=== PATIENT | male | born 1945 | race African-American/Black ===

== ENCOUNTER → 2017-02-21 | Outpatient (CLI) | payer MEDICARE, OTHER ==
[~2017-02-21] VITALS: Ht 157.5 cm; Wt 65.8 kg
[~2017-02-21] MED LIST: ACYCLOVIR 400400 MG PO; ALENDRONATE SOD70 MG; ALENDRONATE SODIUM PO; ALLOPURINOL 30300 M1 PO; ANASPAZ0.125 MG SL; APAP500 PO; APAP650 PO; ARICEPT 5 MG TAB5 MG PO; ARTIFICIAL TEAR15 M1 OPHTHALMIC; BACTRIM DS TAB1 EACH PO; BELLADONNA-OPI1 EACH; BENTYL20 MG PO; CARBIDOPA-LEVO1 EAC2 PO; CARBIDOPA-LEVO1 EAC6 PO; CARISOPRODOL 3350 MG PO; CEFTAZIDIME IV; CIPRO500 MG PO; CIPROFLOXACIN500 M1 PO; CLONAZEPAM 0.50.5 M1 PO; CLONAZEPAM 1 MG1 M1 PO; CLONAZEPAM PO; COLACE100 MG PO; COMPAZINE10 MG PO; COQ1050 MG PO; COUMADIN 3 MG TA3 M1 PO; COUMADIN 5 MG TA5 M1 PO; COUMADIN6 MG PO; D3 + K2 DOTS 11 EACH PO; DEXAMETHASONE 44 M1 PO; DEXAMETHASONE4 MG PO; DIAZEPAM 10 MG10 M1 PO; DOLOPHINE HCL10 MG PO; DOLOPHINE HCL5 MG PO; DULCOLAX5 MG PO; DURAGESIC1 EAC2 TRANSDERM; ENOXAPARIN40 MG/0.1 SUBQ; ENOXAPARIN80 MG/0.1 INJECTION; ENOXAPARIN80 MG/0.8 SQ; EX-LAX15 M1 PO; FIBERCON625 M1 PO; FLEXERIL PO; FOSAMAX 70 MG T70 MG PO; FUROSEMIDE 20 M20 MG PO; HEMORRHOIDAL HC25 MG RC; HYDROCODONE-AP1 EAC6 PO; HYOSCYAMINE0.375 MG; KEFLEX500 MG PO; KLOR-CON 1010 MEQ PO; LASIX 20 MG TAB20 MG PO; LEVAQUIN 500 M500 MG PO; LEXAPRO 10 MG T10 M1 PO; LEXAPRO 10 MG T10 M2 PO; LIDOCAINE HCL 210 M1 TOP; MACROBID 100 M100 M1 PO; MAXIPIME 2 GM AD2 GM IV; MELATIN3 MG; MIRALAX255 GM PO; NEURONTIN 300300 M1 PO; NITROGLYCERIN0.4 MG SL; NORCO 5-325 TA1 EACH PO; ONDANSETRON HCL4 M2 PO; ONDANSETRON ODT8 MG PO; PAMIDRONATE; PERCOCET 5-3251 EACH PO; PHENAZOPYRIDIN200 M2; PREDNISONE 10 M10 MG PO; PRILOSEC40 MG PO; PROCHLORPERAZIN10 MG PO; PROCTOCREAM-HC30 G1 RC; PYRIDIUM200 MG PO; REFRESH CELLUVI1 APP OPHTHALMIC; REFRESH CLASSI1 EACH OPHTHALMIC; REQUIP3 MG PO; REVLIMID25 MG PO; ROBAXIN 750 MG750 M1 PO; SEROQUEL 25 MG25 M1 PO; SINEMET 25-1001 EAC1 PO; SINEMET CR 50/21 TAB PO; TAMSULOSIN HCL0.4 M1 PO; TRAZODONE HCL50 MG PO; TRIHEXYPHENIDYL2 M2 NG; TRIHEXYPHENIDYL2 M2 PO; TUMS PO; URIBEL CAPSULE1 EACH PO; VALIUM2 MG PO; VITAMIN B-2100 MG PO; VITAMIN D1000 UNI1 PO; VITAMIN D250000 UNIT PO; VITAMIN D31000 UNI2; VITAMIN D31000 UNI2 PO; WARFARIN PO; ZANAFLEX4 M1; ZANTAC 150MG T150 MG PO; ZOLPIDEM TART12.5 MG PO; ZONISAMIDE 100100 M1 PO; [UNRECOGNIZED DRUG - REMARK]
[2017-02-21 10:09] VITALS: BP 103/50
== END ==
LOC: M.INT 09:41
DX: M48.54XA Collapsed vertebra, not elsewhere classified, thoracic region, initial encounter for fracture (principal); C90.00 Multiple myeloma not having achieved remission; M47.894 Other spondylosis, thoracic region; N39.0 Urinary tract infection, site not specified; Z87.891 Personal history of nicotine dependence; Z86.718 Personal history of other venous thrombosis and embolism; Z89.022 Acquired absence of left finger(s)

== ENCOUNTER 2018-04-12 13:22 | Inpatient (IN) | payer MEDICARE, OTHER ==
[~2018-04-12] VITALS: Ht 160 cm; Wt 63.0 kg
[2018-04-12 13:33] VITALS: BP 140/70
[2018-04-12] MEDS ORDERED: COLACE100 MG PO (13:48)
[2018-04-12] MEDS ORDERED: OMEPRAZOLE40 MG PO (13:52)
[2018-04-12] MEDS ORDERED: VITAMIN D3400 UNIT PO (13:53)
[2018-04-12] MEDS ORDERED: COUMADIN 5 MG TA5 M1 PO (13:55)
[2018-04-12] MEDS ORDERED: METHADONE HCL 110 M1 PO (13:56)
[2018-04-12] MEDS ORDERED: LEVSIN0.125 MG PO (13:57)
[2018-04-12 14:09] LABS: ABSOLUTE EOSINOPHILS 0.1 thou/uL (0.0-0.7); ABSOLUTE LYMPHOCYTES 0.8 thou/uL (0.8-5.3); ABSOLUTE MONOCYTES 0.3 thou/uL (0.0-1.2); ABSOLUTE NEUTROPHILS 3.6 thou/uL (1.6-8.1); BASOPHILS 0.4 %; EOSINOPHILS 1.3 %; HEMATOCRIT 25.3 % (42.0-52.0); HEMOGLOBIN 8.3 gm/dL (14.0-18.0); LYMPHOCYTES 17.5 %; MCH 33.5 pg (26.0-34.0); MCHC 32.7 g/dL (28.0-37.0); MCV 102.3 fL (80.0-100.0); MPV 7.7 fl. (7.2-11.1); NUCLEATED RBCS 0 /100WBC; PLATELET COUNT* 329 thou/uL (150-400); POLYS 73.8 %; RBC 2.47 mil/uL (4.50-6.00); RDW-CV 15.1 % (10.5-14.5); WBC 4.8 thou/uL (4.0-11.0)
[2018-04-12 14:26] LABS: ALBUMIN 2.8 g/dL (3.4-5.0); CALCIUM 8.7 mg/dL (8.5-10.1); CREATININE 1.8 mg/dL (0.6-1.3); POTASSIUM 4.3 mmol/L (3.5-5.1); TOTAL BILIRUBIN 0.1 mg/dL (<0.1-1.0); TOTAL PROTEIN 9.2 g/dL (6.4-8.2)
[2018-04-12 14:30] LABS: URINE BILIRUBIN NEGATIVE (Negative); URINE BLOOD 2+ (Negative); URINE CLARITY CLEAR; URINE COLOR YELLOW; URINE GLUCOSE-RANDOM NEGATIVE (Negative); URINE KETONES TRACE (Negative); URINE PROTEIN 2+ (Negative); URINE SPECIFIC GRAVITY >= 1.030 (1.005-1.030); URINE UROBILINOGEN 0.2 E.U./dl (0.2-1.0)
[2018-04-12 14:51] LABS: URINE LEUKOCYTES-REFLEX 2+ (Negative); URINE NITRITE-REFLEX POSITIVE (Negative)
[2018-04-12 14:52] LABS: CASTS None Seen /LPF (None Seen); CRYSTALS None Seen /LPF (None Seen); SQUAMOUS 0-3 Few /LPF (0-3); URINE RBC 0-2 Rare /HPF (0-2); URINE WBC-REFLEX 6-15 Few /HPF (0-5)
[2018-04-12 15:38] LABS: INFLUENZA A ANTIGEN None Detected (None Detect); INFLUENZA B ANTIGEN None Detected (None Detect)
[2018-04-12 20:02] VITALS: BP 147/59
[2018-04-12 20:10] VITALS: BP 145/58
[2018-04-13 00:30] VITALS: BP 131/53
[2018-04-13 04:25] VITALS: BP 128/52
[2018-04-13 04:58] LABS: ABSOLUTE EOSINOPHILS 0.1 thou/uL (0.0-0.7); ABSOLUTE LYMPHOCYTES 0.8 thou/uL (0.8-5.3); ABSOLUTE MONOCYTES 0.3 thou/uL (0.0-1.2); ABSOLUTE NEUTROPHILS 2.5 thou/uL (1.6-8.1); BASOPHILS 0.4 %; HEMATOCRIT 21.3 % (42.0-52.0); HEMOGLOBIN 7.2 gm/dL (14.0-18.0); LYMPHOCYTES 22.8 %; MCH 34.5 pg (26.0-34.0); MCHC 33.9 g/dL (28.0-37.0); MCV 101.8 fL (80.0-100.0); MONOCYTES 6.8 %; MPV 8.2 fl. (7.2-11.1); NUCLEATED RBCS 0 /100WBC; PLATELET COUNT* 264 thou/uL (150-400); RBC 2.09 mil/uL (4.50-6.00); RDW-CV 15.7 % (10.5-14.5); WBC 3.7 thou/uL (4.0-11.0)
[2018-04-13 05:17] LABS: ALBUMIN 2.1 g/dL (3.4-5.0); CALCIUM 7.9 mg/dL (8.5-10.1); CREATININE 1.7 mg/dL (0.6-1.3); POTASSIUM 4.7 mmol/L (3.5-5.1); TOTAL BILIRUBIN 0.1 mg/dL (<0.1-1.0); TOTAL PROTEIN 7.5 g/dL (6.4-8.2)
[2018-04-13 08:00] VITALS: BP 132/52
[2018-04-13 12:04] VITALS: BP 87/54
[2018-04-13 16:35] VITALS: BP 133/48
[2018-04-13 20:00] VITALS: BP 154/67
[2018-04-14 00:15] VITALS: BP 135/60
[2018-04-14 04:00] VITALS: BP 131/50
[2018-04-14 05:15] LABS: ABSOLUTE EOSINOPHILS 0.1 thou/uL (0.0-0.7); ABSOLUTE LYMPHOCYTES 0.8 thou/uL (0.8-5.3); ABSOLUTE MONOCYTES 0.2 thou/uL (0.0-1.2); ABSOLUTE NEUTROPHILS 2.5 thou/uL (1.6-8.1); BASOPHILS 0.3 %; EOSINOPHILS 2.4 %; HEMATOCRIT 22.2 % (42.0-52.0); HEMOGLOBIN 7.4 gm/dL (14.0-18.0); LYMPHOCYTES 21.8 %; MCH 33.7 pg (26.0-34.0); MCHC 33.3 g/dL (28.0-37.0); MCV 101.3 fL (80.0-100.0); MONOCYTES 6.8 %; MPV 7.8 fl. (7.2-11.1); NUCLEATED RBCS 0 /100WBC; PLATELET COUNT* 287 thou/uL (150-400); POLYS 68.7 %; RBC 2.19 mil/uL (4.50-6.00); RDW-CV 15.1 % (10.5-14.5); WBC 3.6 thou/uL (4.0-11.0)
[2018-04-14 05:53] LABS: ALBUMIN 2.2 g/dL (3.4-5.0); CALCIUM 7.9 mg/dL (8.5-10.1); CREATININE 1.6 mg/dL (0.6-1.3); POTASSIUM 4.7 mmol/L (3.5-5.1); TOTAL BILIRUBIN 0.1 mg/dL (<0.1-1.0); TOTAL PROTEIN 7.7 g/dL (6.4-8.2)
[2018-04-14 08:00] VITALS: BP 145/63
[2018-04-14 11:47] VITALS: BP 140/61
[2018-04-14 16:00] VITALS: BP 141/70
[2018-04-14 19:55] VITALS: BP 163/71
[2018-04-15] VITALS: BP 105/48
[2018-04-15 04:26] VITALS: BP 139/51
[2018-04-15 07:21] LABS: ABSOLUTE EOSINOPHILS 0.1 thou/uL (0.0-0.7); ABSOLUTE LYMPHOCYTES 0.7 thou/uL (0.8-5.3); ABSOLUTE MONOCYTES 0.3 thou/uL (0.0-1.2); ABSOLUTE NEUTROPHILS 1.9 thou/uL (1.6-8.1); BASOPHILS 0.3 %; EOSINOPHILS 3.5 %; HEMATOCRIT 21.5 % (42.0-52.0); HEMOGLOBIN 7.1 gm/dL (14.0-18.0); LYMPHOCYTES 24.4 %; MCH 33.5 pg (26.0-34.0); MCV 101.6 fL (80.0-100.0); MONOCYTES 8.5 %; MPV 8.4 fl. (7.2-11.1); NUCLEATED RBCS 0 /100WBC; PLATELET COUNT* 289 thou/uL (150-400); POLYS 63.3 %; RBC 2.12 mil/uL (4.50-6.00); RDW-CV 15.5 % (10.5-14.5)
[2018-04-15 07:30] VITALS: BP 147/70
[2018-04-15 07:31] LABS: ALBUMIN 2.3 g/dL (3.4-5.0); ALKALINE PHOSPHATASE 54 U/L (46-116); ANION GAP 11 mmol/L (7-16); BUN 18 mg/dL (7-18); CALCIUM 7.8 mg/dL (8.5-10.1); CHLORIDE 110 mmol/L (98-107); CO2 23 mmol/L (21-32); CREATININE 1.5 mg/dL (0.6-1.3); GLUCOSE 97 mg/dL (70-99); POTASSIUM 4.2 mmol/L (3.5-5.1); SGOT 9 U/L (15-37); SGPT 8 U/L (30-65); SODIUM 144 mmol/L (136-145); TOTAL PROTEIN 7.3 g/dL (6.4-8.2)
[2018-04-15 07:33] LABS: TOTAL BILIRUBIN < 0.1 mg/dL (<0.1-1.0)
[2018-04-15] MEDS ORDERED: OXYBUTYNIN 5 MG5 M2 PO (09:43)
[2018-04-15] MEDS ORDERED: KEFLEX500 M1 PO (09:43)
[2018-04-15 10:08] VITALS: BP 147/70
--- NOTE | 2018-04-15 14:50 | EKG ---
[place] [address] ELECTROCARDIOGRAM REPORT Name: ISAURA LABOY Room: [address] DIS IN M.R.#: [id number] Admission: 04/12/18 Attend Phys: Lance Wilkes Discharge: 04/15/18 Date of : 43 Report #: [id number] THIS REPORT FOR: //name// [facility] ED Test Date: 2018-04-12 Test Time: 14:29:46 Pat Name: ISAURA LABOY Department: Room: [facility] Gender: M Locker Operator: Jill WHEELER : 1945 Requested By: Mark Murillo Order Number: [id number] MD: Da Ochoa Measurements Intervals [place] Rate: 69 P: 17 TX: 136 QRS: -1 QRSD: 80 T: 25 QT: 383 QTc: 411 Interpretive Statements Sinus rhythm Artifact in lead(s) I,III,aVR,aVL,aVF,V1 Compared to ECG 01/02/2017 19:55:04 No significant changes Electronically Signed On 04-15-2018 14:49:52 CDT by Da Ochoa [email or web address] <ELECTRONICALLY SIGNED> By: Da Ochoa MD, [facility] 04/15/18 1449 1429 1429 Da Ochoa MD, [facility] /EPI
== END 2018-04-15 13:17 | disposition home or self-care (01) | DRG 391 ==
LOC: M.ERS 13:22 → M.TBA-ER 15:16 → M.2W 15:16
PROVIDERS: Nurse Practitioner Psychiatric/Mental Health; Physician Assistant; ADMIT Internal Medicine
DX: A08.4 Viral intestinal infection, unspecified (principal); E43 Unspecified severe protein-calorie malnutrition; N39.0 Urinary tract infection, site not specified; C90.00 Multiple myeloma not having achieved remission; G20 Parkinson's disease; F41.9 Anxiety disorder, unspecified; F32.9 Major depressive disorder, single episode, unspecified; R19.7 Diarrhea, unspecified; M81.0 Age-related osteoporosis without current pathological fracture; N18.3 Chronic kidney disease, stage 3 (moderate); D64.9 Anemia, unspecified; R33.9 Retention of urine, unspecified; N20.0 Calculus of kidney; B96.20 Unspecified Escherichia coli [E. coli] as the cause of diseases classified elsewhere; Z86.711 Personal history of pulmonary embolism; Z89.422 Acquired absence of other left toe(s); Z86.718 Personal history of other venous thrombosis and embolism; Z87.891 Personal history of nicotine dependence; Z85.51 Personal history of malignant neoplasm of bladder; Z98.1 Arthrodesis status; Z92.21 Personal history of antineoplastic chemotherapy; Z92.3 Personal history of irradiation; Z87.81 Personal history of (healed) traumatic fracture; Z79.01 Long term (current) use of anticoagulants; Z79.899 Other long term (current) drug therapy; Z88.0 Allergy status to penicillin; Z91.040 Latex allergy status; Z68.24 Body mass index [BMI] 24.0-24.9, adult

== ENCOUNTER 2018-04-24 14:20 | Inpatient (IN) | payer MEDICARE, OTHER ==
[~2018-04-24] VITALS: Ht 160 cm; Wt 62.1 kg
--- NOTE | ~2018-04-24 | PROC ---
[address] [address] PROCEDURE REPORT Name: ISAURA LABOY Room: [address] IN M.R.#: [id number] Admission: 04/24/18 Attend Phys: Fantasma Bajwa, Discharge: Date of : 43 Report #: [id number] THIS REPORT FOR: //name// For GI report, please see the Provation report in Perceptive 7 content. By: [id number] Records Staff LUCIEN /JOSEE
--- NOTE | ~2018-04-24 | CON ---
[address] [address] CONSULTATION Name: ISAURA LABOY Room: [address] IN M.R.#: [id number] Admission: 04/24/18 Attend Phys: Fantasma Bajwa, Discharge: Date of : 43 Report #: [id number] THIS REPORT FOR: //name// CC: Jeff Bajwa DICTATED BY: Karina CAMACHO DATE OF SERVICE: 04/26/2018 REASON FOR CONSULTATION: Anemia. Please note at the time of this dictation, the patient was seen and physically examined by myself. HISTORY OF PRESENT ILLNESS: This is a 73-year-old male who presented to the Emergency Room with chief complaint of increasing weakness. The patient was just discharged from the hospital on 04/15/2018 for treatment of a UTI at that time. Since he has been home, he has had progressive weakness. When the patient was in the hospital the last time, his hemoglobin was trending in the 7's at that time. However, on this admission when he was admitted, hemoglobin was 8.3 and then he did drop down to 6.5 and received a unit of blood, he is now 7.7, white count is 3.2, platelets is 205. PT is 12.7, INR is 1.2 and GFR is 55. The patient denies any overt bleeding. No nausea or vomiting, no abdominal pain or any black tarry stools or any bright red bloody stools. The patient did have an EGD back in 01/2018 showed that he had grade D esophagitis, a small hiatal hernia. He was dilated for a benign stricture that was noted with a repeat EGD to be done in 3 months. The patient was unable to afford the Carafate at that time suspension and he has only been taking the Protonix, which he is still on. He denies any dysphagia at this time during this admission. ALLERGIES: PENICILLIN AND LATEX. MEDICATIONS: From home, he had been on Keflex and oxybutynin, clonazepam, Aricept, Lexapro, Desyrel, Fosamax, Lasix, potassium chloride, Sinemet, Colace, omeprazole, vitamin D, warfarin, methadone and Levsin. PAST MEDICAL HISTORY: Parkinson's disease, multiple myeloma, osteoporosis with chronic back pain, sleep apnea, anxiety, depression, recent grade D esophagitis, bladder cancer. PAST SURGICAL HISTORY: He has got a brain stimulator, compression fracture and hip repair, suprapubic catheter for retention. FAMILY HISTORY: [place] [address] CONSULTATION Name: ISAURA LABOY Room: [address] IN M.R.#: [id number] Admission: 04/24/18 Attend Phys: Fantasma Bajwa, Discharge: Date of : 43 Report #: [id number] SOCIAL HISTORY: Lives with his . Denies any alcohol, tobacco or illegal drug use. REVIEW OF SYSTEMS: Twelve-point review of systems is essentially negative except what is mentioned in the HPI. PHYSICAL EXAMINATION: VITAL SIGNS: Temperature 37, pulse 64, respirations 18, blood pressure 133/51. HEART: Regular rate and rhythm. LUNGS: Diminished with some decreased breath sounds on the right and some faint crackles. ABDOMEN: Soft, positive bowel sounds in all 4 quadrants with no masses or tenderness noted and a suprapubic catheter is noted to be in place. LABORATORY DATA: Again, hemoglobin is 7.7, white count is 3.2 and platelets 205, GFR is 55 and PT is 12.7, INR is 1.2. IMPRESSION: 1. Anemia, acute on chronic. No overt bleeding noted. 2. History of grade D esophagitis back in 01/2018. 3. Recent hospitalization and discharged on 04/15/2018 for urinary tract infection. 4. History of multiple myeloma. 5. Pneumonitis. 6. Parkinson's disease. 7. History of bladder cancer. PLAN: 1. Continue his PPI b.i.d. 2. We will need to await until his lung status improves before we can repeat his EGD to check for healing. 3. We will just continue to monitor his H and H since no overt bleeding is noted. Thank you for allowing us to participate in this patient's care. Please do not hesitate to call with any questions in regard to this consult. ADDENDUM: I have personally seen and examined the patient and reviewed labs and imaging. The patient is well known to us as he underwent upper endoscopy in 01/2018 for symptoms of dysphagia. At that time, he had grade D esophagitis and was asked to follow up for another upper endoscopy to assure healing. The patient presented to hospital with severe weakness, pneumonitis and found to be anemic. The patient is also on anticoagulation therapy for history of [place]VT [place] [address] CONSULTATION Name: ISAURA LABOY Room: [address] IN ..#: [id number] Admission: 04/24/18 Attend Phys: Fantasma Bajwa, Discharge: Date of : 43 Report #: [id number] will continue to monitor H and H and keep the patient on PPI therapy. He will need an upper endoscopy prior to discharge. If this was negative, we will consider a colonoscopy as his last colonoscopy was more than 5 years ago. The patient and are agreeable with plan. By: [id number] Lynch MD /malu
[~2018-04-24 14:20] MED LIST changes: +COUMADIN 2 MG TA2 M1 PO; +KEFLEX500 M1 PO; +LEVSIN0.125 MG PO; +METHADONE HCL 110 M1 PO; +OMEPRAZOLE40 MG PO; +OXYBUTYNIN 5 MG5 M2 PO
[2018-04-24 14:28] VITALS: BP 141/73
[2018-04-24 14:46] LABS: URINE BILIRUBIN NEGATIVE (Negative); URINE BLOOD TRACE (Negative); URINE CLARITY CLEAR; URINE COLOR YELLOW; URINE GLUCOSE-RANDOM NEGATIVE (Negative); URINE KETONES NEGATIVE (Negative); URINE LEUKOCYTES-REFLEX 1+ (Negative); URINE NITRITE-REFLEX NEGATIVE (Negative); URINE PROTEIN 1+ (Negative); URINE SPECIFIC GRAVITY 1.025 (1.005-1.030); URINE UROBILINOGEN 0.2 E.U./dl (0.2-1.0)
[2018-04-24 14:48] LABS: ABSOLUTE LYMPHOCYTES 0.5 thou/uL (0.8-5.3); ABSOLUTE MONOCYTES 0.2 thou/uL (0.0-1.2); ABSOLUTE NEUTROPHILS 2.5 thou/uL (1.6-8.1); BASOPHILS 0.6 %; HEMATOCRIT 25.4 % (42.0-52.0); HEMOGLOBIN 8.3 gm/dL (14.0-18.0); LYMPHOCYTES 15.1 %; MCH 33.6 pg (26.0-34.0); MCHC 32.8 g/dL (28.0-37.0); MCV 102.3 fL (80.0-100.0); MONOCYTES 4.9 %; NUCLEATED RBCS 0 /100WBC; PLATELET COUNT* 284 thou/uL (150-400); POLYS 78.4 %; RBC 2.48 mil/uL (4.50-6.00); RDW-CV 16.3 % (10.5-14.5); WBC 3.2 thou/uL (4.0-11.0)
[2018-04-24 14:55] LABS: APTT 31.3 Seconds (25.0-31.3); PROTIME 20.3 Seconds (9.20-11.50)
[2018-04-24 14:58] LABS: AMORPHOUS URATES Few /LPF (None Seen); BACTERIA-REFLEX 1-9 Few /HPF (None Seen); CASTS None Seen /LPF (None Seen); CRYSTALS None Seen /LPF (None Seen); SQUAMOUS NONE SEEN /LPF (0-3); URINE RBC None Seen /HPF (0-2); URINE WBC-REFLEX 0-5 Rare /HPF (0-5)
[2018-04-24 15:02] LABS: ANION GAP 8 mmol/L (7-16); BUN 24 mg/dL (7-18); CALCIUM 9.1 mg/dL (8.5-10.1); CHLORIDE 101 mmol/L (98-107); CO2 29 mmol/L (21-32); CREATININE 1.7 mg/dL (0.6-1.3); GLUCOSE 113 mg/dL (70-99); POTASSIUM 5.4 mmol/L (3.5-5.1); SODIUM 138 mmol/L (136-145); TROPONIN-I LEVEL <0.06 ng/mL (<0.06)
[2018-04-24 15:04] LABS: ALBUMIN 2.8 g/dL (3.4-5.0); ALKALINE PHOSPHATASE 82 U/L (46-116); NT-PRO BRAIN NAT PEPTIDE 1324 pg/mL (<300); SGOT 18 U/L (15-37); SGPT 13 U/L (30-65); TOTAL BILIRUBIN 0.1 mg/dL (<0.1-1.0); TOTAL PROTEIN 9.5 g/dL (6.4-8.2)
[2018-04-24 17:04] VITALS: BP 118/51
[2018-04-24 18:00] VITALS: BP 116/54
--- NOTE | 2018-04-24 18:28 | NUR ---
vss, assumed care of pt from er,placed monitor on pt, provited admit papers and placed call light in reach, familu at bedside,
[2018-04-25] VITALS (7 sets, daily range): BP systolic 88–145; BP diastolic 35–75
[2018-04-25 05:28] LABS: MCH 33.5 pg (26.0-34.0); MCHC 32.8 g/dL (28.0-37.0); MCV 102.4 fL (80.0-100.0); MPV 8.6 fl. (7.2-11.1); RBC 1.95 mil/uL (4.50-6.00); RDW-CV 16.1 % (10.5-14.5); WBC 3.2 thou/uL (4.0-11.0)
[2018-04-25 05:43] LABS: CREATININE 1.6 mg/dL (0.6-1.3); MAGNESIUM 1.9 mg/dL (1.8-2.4)
[2018-04-25 05:55] LABS: HEMOGLOBIN 6.5 gm/dL (14.0-18.0)
--- NOTE | 2018-04-25 07:20 | NUR ---
CHANGE OF SHIFT BEDSIDE REPORT GIVEN PATIENT SEEN AT BEDSIDE, IN BED ASLEEP ASSUMED PATIENT CARE
--- NOTE | 2018-04-25 09:31 | NUR ---
PT A+OX4. NO PAIN REPORTED OR OBSERVED. PT SWALLOWS PILLS WELL WITH THICKENED LIQUIDS. DR NOTIFIED OF CRITICAL LAB RESULT THIS AM. 1 UNIT OF BLOOD ORDERED. ASSITED PT TO CALL . TRACING SR ON MONITOR. CALL LIGHT IN REACH. HOURLY ROUNDING FOR SAFETY.
[2018-04-25] MEDS ORDERED: OXYBUTYNIN 5 MG5 M2 PO (11:09)
--- NOTE | 2018-04-25 13:50 | NUR ---
Pt is A&O. Resides at home with his . Known to this CM from previous hospital stay. Independent. Pt has a walker and wc at home that he can use for mobility. [facility] comes monthly to change Pt's catheter. Hx of skilled at [place]. Goal is home at ok. Following.
--- NOTE | 2018-04-25 16:42 | EKG ---
[place] [address] ELECTROCARDIOGRAM REPORT Name: ISAURA LABOY Room: [address] ADM IN M.R.#: [id number] Admission: 04/24/18 Attend Phys: Fantasma Bajwa, Discharge: Date of : 43 Report #: [id number] THIS REPORT FOR: //name// [facility] ED Test Date: 2018-04-24 Test Time: 14:36:19 Pat Name: ISAURA LABOY Department: Room: [facility] Gender: M Oil House Attendant: : 1945 Requested By: Ana Jo Order Number: [id number] MD: Dudley Rashid Measurements Intervals [place] Rate: 74 P: FL: QRS: 20 QRSD: 148 T: -2 QT: 384 QTc: 426 Interpretive Statements Sinus rhythm Nonspecific intraventricular conduction delay Artifact in lead(s) I,II,III,aVL,aVF,V1,V2,V3,V4,V5,V6 Compared to ECG 04/12/2018 14:29:46 Artifact noted Electronically Signed On 04-25-2018 16:42:23 CDT by Dudley Rashid [email or web address] <ELECTRONICALLY SIGNED> By: Dudley Rashid MD, [facility] 04/25/18 1642 1436 1436 Dudlye Rashid MD, [facility] /EPI
[2018-04-25 18:58] LABS: HEMATOCRIT 23.8 % (42.0-52.0); MCH 33.3 pg (26.0-34.0); MCHC 33.4 g/dL (28.0-37.0); MCV 99.7 fL (80.0-100.0); MPV 8.1 fl. (7.2-11.1); RBC 2.39 mil/uL (4.50-6.00); RDW-CV 18.9 % (10.5-14.5); WBC 3.7 thou/uL (4.0-11.0)
[2018-04-26] VITALS (7 sets, daily range): BP systolic 123–140; BP diastolic 50–70
--- NOTE | 2018-04-26 05:09 | NUR ---
VSS ON 1L O2 NC. PATIENT MET GOAL OF HAVING A BOWEL MOVEMENT AFTER SUPPOSITORY AND STOOL SOFTENER GIVEN. PATIENT HAD PAIN IN RIGHT ELBOW BUT WAS RELIEVED WITH REPOSITIONING AND RELAXATION. DENIES FURTHER PAIN AND DISCOMFORT. NEW IV PLACED PER PATIENT REQUEST. OLD IV DISCONTINUED. CALL LIGHT WITHIN REACH.
[2018-04-26 05:18] LABS: HEMATOCRIT 23.2 % (42.0-52.0); HEMOGLOBIN 7.7 gm/dL (14.0-18.0); MCH 32.9 pg (26.0-34.0); MCV 99.7 fL (80.0-100.0); MPV 8.7 fl. (7.2-11.1); RBC 2.33 mil/uL (4.50-6.00); RDW-CV 18.5 % (10.5-14.5); WBC 3.2 thou/uL (4.0-11.0)
[2018-04-26 05:28] LABS: CALCIUM 8.5 mg/dL (8.5-10.1); CREATININE 1.5 mg/dL (0.6-1.3); INR 1.2; POTASSIUM 4.8 mmol/L (3.5-5.1); PROTIME 12.7 Seconds (9.20-11.50)
--- NOTE | 2018-04-26 09:24 | CON ---
[address] [address] CONSULTATION Name: ISAURA LABOY Room: [address] IN M.R.#: [id number] Admission: 04/24/18 Attend Phys: Fantasma Bajwa, Discharge: Date of : 43 Report #: [id number] THIS REPORT FOR: //name// CC: Jeff Bajwa DATE OF SERVICE: 04/25/2018 NEUROLOGY CONSULTATION HISTORY OF PRESENT ILLNESS: The patient is a 73-year-old male with a longstanding history of Parkinson's disease. The patient is currently a patient at [facility] and sees Dr. Alvarez. The patient had a significant tremor in the upper extremities, but this was controlled with the deep brain stimulator. In fact, he had been on quite a few medications and with the deep brain stimulator, was able to reduce his medication to Sinemet 25/100 ODT 1/2 tablet 4 times a day. His also has a patient business programmer and from time to time when she needs help with something, will call Dr. Alvarez's nurse who will explain to the patient's how to adjust the deep brain stimulator. He has an appointment to see Dr. Alvarez some time before the end of April. Overall, he feels that his symptoms are relatively well controlled. He does have hypophonia, but this typically does not respond to medication or deep brain stimulation. In addition, balance does not respond to deep brain stimulation. The patient was admitted to the hospital complaining of generalized weakness. He had been in the hospital the week before with a urinary tract infection. The patient is now receiving a transfusion, his hemoglobin was 6.5 this morning. PAST MEDICAL HISTORY: Multiple myeloma, chronic back pain, history of DVT and pulmonary embolus, sleep apnea, anxiety, depression. PAST SURGICAL HISTORY: Kyphoplasty x 4, right knee surgery, neck surgery, deep brain stimulator, hip repair, femur fracture, suprapubic catheter. MEDICATIONS AT HOME: Clonazepam 0.4 mg p.r.n. anxiety, donepezil 10 mg at bedtime, Lexapro 20 mg daily, trazodone 50 mg at bedtime, Fosamax 70 mg weekly, furosemide 20 mg b.i.d., potassium 10 mEq daily, Tylenol p.r.n. headache, Sinemet 25/100 ODT 1/2 tablet 4 times a day, Colace 100 mg daily, omeprazole b.i.d., vitamin D 2000 units daily, warfarin 6 mg daily, methadone 10 mg t.i.d., hyoscyamine 0.125 mg q. 4 hours p.r.n. ALLERGIES: PENICILLIN AND LATEX. PHYSICAL EXAMINATION: VITAL SIGNS: Temperature is 37.1, pulse rate 75, respiratory rate 19, blood pressure 100/43, bedside pulse oximetry 99% on 1 [place] [address] CONSULTATION Name: ISAURA LABOY NALINI Room: [address]#: [id number] Admission: 04/24/18 Attend Phys: Fantasma Bajwa, Discharge: Date of : 43 Report #: [id number] NEUROLOGIC: Cranial nerves 2-12 are grossly intact. The patient is hypophonic. Motor exam demonstrates symmetrical strength in all 4 extremities with tone and bulk normal. The patient has generalized weakness in the extremities. There is no evidence of cogwheel rigidity. No supination, pronation tremor was seen. Plantar responses are flexor bilaterally. Coordination reveals intact ctzpdb-[id number]-ftaw. The patient does have a tremor, particularly in the right upper extremity with [id number]. Gait was not tested. LABORATORY DATA: Hematology: White blood cell count 3.2, hemoglobin 6.5, hematocrit 20, MCV 102.4, platelet count 209,000. INR 2. Urinalysis 1+ protein, trace blood, 1+ leukocyte esterase. Chemistry: Sodium 134, potassium 5, chloride 103, carbon dioxide 28, BUN 26, creatinine 1.6, GFR 51, glucose 97. IMPRESSION: This patient has Parkinson's disease. He is followed by Dr. Alvarez at [facility]. At this point, I would continue Sinemet 25/100 half tablet 4 times a day. I encouraged the patient to keep his appointment with Dr. Alvarez, which is sometime before the end of this month. There is nothing more that I can do to adjust his medications to improve his symptoms. Part of his generalized weakness may be from his low hemoglobin and probable generalized deconditioning from Parkinson's disease. I thank you for your kind referral of this patient and will see him on an as needed basis. <ELECTRONICALLY SIGNED> By: Bibiana Bowers DO 04/26/18 0924 1353 [id number] Bowers DO /nt
--- NOTE | 2018-04-26 10:27 | NUR ---
CALLED ORAL IN PHARMACY. ABT WILL BE HERE ON NEXT ROUND.
--- NOTE | 2018-04-26 12:39 | NUR ---
pts stated pt was to be taken off hycosomide as it did not work for him.
--- NOTE | 2018-04-26 13:03 | NUR ---
SENT DR DURAN A NOTE THRU YOU CALL RE HYOSCOMОЛЬГА AND STATING THAT WAS TO BE CHANGED THAT IT DID NOT WORK FOR PT.
--- NOTE | 2018-04-26 14:41 | NUR ---
ASSUMED CARE OF PT ASSESSED AND DOCUMENTED. PT IS ON CARDIAC MONITER TRACING SR HR 72.VSS WNL. PT IS AFEBRILE. IS AT BEDSIDE. PT IS A&O WITH NO C/O PAIN. JONES HAS CLEAR LITE YELLOW URINE. PT IS ON FALL PRECAUTIONS PER FACILITY PROTOCOL. PT IS ON 1L OF 02. BED IS IN LOW POSITION CALL LIGHT IS IN REACH. WM.
--- NOTE | 2018-04-26 17:27 | NUR ---
PT HAS RESTED IN HIS BED AND AT BEDSIDE CHAIR THIS SHIFT. HAS BEEN AT BEDSIDE. EDUCATION GIVEN ON DEMAND. HOURLY ROUNDING CONT.
--- NOTE | 2018-04-26 20:15 | NUR ---
RECEIVED REPORT AND ASSUMED CARE OF PT, ASSESSMENT COMPLETED. AT BEDSIDE. TOLERATING THICKEN LIQUIDS, HOB ELEVATED. DISCUSSED RA AT PRESENT TIME WITH OXYGEN PROB AT HS FOR SLEEP. SPUBIC CATH PATENT TO DD. TELEMETRY ON SHOWING SR. WILL CONT TO MONITOR AND ASSIST NEEDED.
[2018-04-27 04:45] VITALS: BP 139/62
[2018-04-27 04:48] LABS: HEMATOCRIT 23.8 % (42.0-52.0); HEMOGLOBIN 7.9 gm/dL (14.0-18.0); MCHC 33.1 g/dL (28.0-37.0); MCV 99.8 fL (80.0-100.0); MPV 8.3 fl. (7.2-11.1); RBC 2.38 mil/uL (4.50-6.00); RDW-CV 17.9 % (10.5-14.5); WBC 3.1 thou/uL (4.0-11.0)
[2018-04-27 05:16] LABS: ALBUMIN 2.2 g/dL (3.4-5.0); CALCIUM 8.7 mg/dL (8.5-10.1); CREATININE 1.6 mg/dL (0.6-1.3); MAGNESIUM 1.8 mg/dL (1.8-2.4); POTASSIUM 4.4 mmol/L (3.5-5.1); TOTAL BILIRUBIN 0.1 mg/dL (<0.1-1.0); TOTAL PROTEIN 7.9 g/dL (6.4-8.2)
--- NOTE | 2018-04-27 06:09 | NUR ---
SLEPT WELL TONIGHT. ASSISTED TO BSC FOR HARD FORMED STOOL. O2 ON AT 2L/NC FOR SOA. TELEMETRY CONT TO SHOW SR. NO CHANGE IN ASSESSMENT. HS GOALS OF REST AND SAFETY ACHIEVED. HOURLY ROUNDING OBSERVED.
[2018-04-27 09:19] VITALS: BP 140/65
--- NOTE | 2018-04-27 09:22 | CON ---
[address] [address] CONSULTATION Name: ISAURA LABOY Room: [address] IN .R.#: [id number] Admission: 04/24/18 Attend Phys: Fantasma Bajwa, Discharge: Date of : 43 Report #: [id number] THIS REPORT FOR: //name// CC: Jeff Bajwa DATE OF SERVICE: 04/26/2018 ATTENDING PHYSICIAN: Fantasma Bajwa MD. REASON FOR CONSULTATION: Pneumonia. HISTORY OF PRESENT ILLNESS: The patient is a 73-year-old man who recently had a viral upper respiratory infection, subsequently developed chest congestion. His chest x-ray now reveals a right basilar pulmonary infiltrate. All in all, the patient is doing much better, voices no major complaints. He tells me the reason for admission was progressive weakness and some shortness of breath. PAST MEDICAL HISTORY: History of severe Parkinson's disease for which he underwent brain stimulator placement at [facility] that was rather successful resulting in the decrease in number of Parkinson disease medication he was using. He also has a history of previous dysphagia and multiple myeloma. History of Clostridium difficile colitis. Pulmonary embolism. Previous urinary tract infection. DRUG ALLERGIES: PENICILLIN, LATEX. MEDICATIONS: The patient is currently on treatment with vancomycin 500 mg IV 2 times daily after a loading dose of 1250 mg. The patient has received Rocephin 1 gram IV daily and this apparently was discontinued yesterday. He is also on treatment with Sinemet 25-100 mg 4 times daily, docusate, pantoprazole, bisacodyl, cholecalciferol, oxybutynin, citalopram, pantoprazole, donepezil, Atrovent and albuterol inhalation treatments, clonazepam p.r.n., acetaminophen p.r.n., methadone p.r.n., hyoscyamine p.r.n., Zithromax 500 mg IV daily, p.r.n. fentanyl and p.r.n. ondansetron. SOCIAL HISTORY: See H and P, old records. FAMILY HISTORY: See H and P, old records. REVIEW OF SYSTEMS: As above. PHYSICAL EXAMINATION: GENERAL: Elderly man. VITAL SIGNS: Temperature of 101.3 on 04/24/2018 at 1800 hours, [place] [address] CONSULTATION Name: ISAURA LABOY MCKINLEY Room: [address]#: [id number] Admission: 04/24/18 Attend Phys: Fantasma Bajwa, Discharge: Date of : 43 Report #: [id number] 98.6, pulse 71, respirations 18, BP 135/68 today. O2 saturation is 99% on 2 liters oxygen, the concentration of the delivered oxygen is decreased to 1 liter per minute. HEENMT: Revealed previous brain stimulator surgical scars on bilateral parietal region. Pupils reactive, some clouding of the lens from both eyes. Mouth: Fairly good oral hygiene and dentition. NECK: Supple. LUNGS: Few crackles, right lung base posteriorly. HEART: S1, S2. No gallop or murmur. ABDOMEN: Soft, no masses or megaly. GENITALIA AND RECTAL: Deferred. EXTREMITIES: No clubbing, cyanosis. NEUROLOGIC: Grossly within normal limits. ASSESSMENT: 1. Right basilar pneumonia. Doubt methicillin-resistant Staphylococcus aureus pneumonia, improving. 2. Possible aspiration. 3. Parkinson's disease, status post brain stimulator, improved. 4. Multiple myeloma. 5. Chronic kidney disease. 6. Leukopenia and anemia secondary to multiple myeloma. SUGGESTIONS: Recommend possibly could safely discontinue vancomycin. Doubt very much we are dealing with MRSA pneumonia. Continue Zithromax change to by mouth instead of ceftriaxone [address] Bajwa, thank you for requesting my suggestions. <ELECTRONICALLY SIGNED> By: Oneil Fragoso MD 04/27/18 0922 1028 [id number] Fragoso MD /nt
--- NOTE | 2018-04-27 11:28 | 2DMMODE ---
[place] [address] 2 D/M-MODE ECHOCARDIOGRAM Name: ISAURA LABOY Room: [address] IN [facility]#: [id number] Admission: 04/24/18 Attend Phys: Fantasma Salguero Discharge: Date of : 43 Date of Service: 04/27/18 1128 Report #: [id number] THIS REPORT FOR: //name// APPROVED REPORT Study performed: 04/27/2018 10:40:01 EXAM: Comprehensive 2D, Doppler, and color-flow Echocardiogram Patient Location: In-Patient Room #: 221 Status: routine BSA: 1.69 HR: 66 bpm BP: 140/65 mmHg Rhythm: NSR Other Information Study Quality: Excellent Indications Cardiomegaly 2D Dimensions IVSd: 10.06 (7-11mm) LVOT Diam: 20.61 (18-24mm) LVDd: 43.89 mm PWd: 7.77 (7-11mm) Ascending Ao: 30.53 (22-36mm) LVDs: 21.47 (25-40mm) Aortic Root: 32.53 mm Volumes Left Atrial Volume (Systole) LA ESV Index: 44.50 mL/m2 Aortic Valve AoV Peak Rios.: 1.69 m/s AO Peak Gr.: 11.38 mmHg LVOT Max P.08 mmHg AO Mean Gr.: 5.12 mmHg LVOT Mean P.50 mmHg LVOT Max V: 1.42 m/s AO V2 VTI: 31.39 cm LVOT Mean V: 0.84 m/s ASHLEY (VTI): 3.48 cm2 LVOT V1 VTI: 32.74 cm Mitral Valve E/A Ratio: 1.08 MV Decel. Time: 192.69 ms MV E Max Rios.: 1.12 m/[place] [address] 2 D/M-MODE ECHOCARDIOGRAM Name: ISAURA LABOY Room: [address] IN .R.#: [id number] Admission: 04/24/18 Attend Phys: Fantasma Salguero Discharge: Date of : 43 Date of Service: 04/27/18 1128 Report #: [id number] MV PHT: 55.88 ms MVA (PHT): 3.94 cm2 TDI E/Lateral E': 8.62 E/Medial E': 9.33 Medial E' Rios.: 0.12 m/s Lateral E' Rios.: 0.13 m/s Pulmonary Valve PV Peak Rios.: 1.08 m/s PV Peak Gr.: 4.63 mmHg Tricuspid Valve RAP Estimate: 5.00 mmHg TR Peak Gr.: 67.64 mmHg RVSP: 72.00 mmHg PA Pressure: 72.00 mmHg Left Ventricle The left ventricle is normal size. There is normal LV segmental wall motion. There is normal left ventricular wall thickness. Left ventricular systolic function is normal. The left ventricular ejection fraction is within the normal range. LVEF is 60-65%. The left ventricular diastolic function is normal. Right Ventricle Right ventricle is dilated. The right ventricular systolic function is normal. Atria Left atrium is moderately dilated. Right atrium is dilated. Aortic Valve The aortic valve is normal in structure. No aortic regurgitation is present. There is no aortic valvular stenosis. Mitral Valve The mitral valve is normal in structure. Trace mitral regurgitation. No evidence of mitral valve stenosis. Tricuspid Valve The tricuspid valve is normal in structure. Mild tricuspid regurgitation. estimate pa pressure 80 mm Hg Pulmonic Valve The pulmonary valve is normal in structure. Trace [place] [address] 2 D/M-MODE ECHOCARDIOGRAM Name: ISAURA LABOY Room: [address] IN [facility]#: [id number] Admission: 04/24/18 Attend Phys: Fantasma Salguero Discharge: Date of : 43 Date of Service: 04/27/18 1128 Report #: [id number] Great Vessels The aortic root is normal in size. IVC is normal in size and collapses >50% with inspiration. Pericardium There is no pericardial effusion. <Conclusion> LVEF is 60-65%. Left atrium is moderately dilated. Mild tricuspid regurgitation. estimate pa pressure 80 mm Hg <ELECTRONICALLY SIGNED> By: Jeff Alas MD, FACC 04/27/18 1128 1128 1128 Jeff Alas MD, FACC /INF
[2018-04-27 12:19] VITALS: BP 140/65
--- NOTE | 2018-04-27 14:50 | NUR ---
DITCH RIDER SPOKE TO THE PATIENT AND HIS SPOUSE TO DISCUSS DISCHARGE PLANNING NEEDS AND SKILLED AT D/C. PATIENT AND SPOUSE DECLINE. SPOUSE INFORMS THAT THEY 'WILL BE JUST FINE GOING HOME WITH HOME HEALTH'. PATIENT'S SPOUSE INFORMS THAT THE PATIENT IS CURRENTLY ON-SERVICE WITH [facility], AND THEY WOULD LIKE TO CONTINUE THEIR SERVICES AT D/C. CM WILL REMAIN AVIALABLE TO ASSIST AND FOLLOW NEEDED.
[2018-04-27 16:00] VITALS: BP 131/54
--- NOTE | 2018-04-27 17:19 | NUR ---
PT REMAINED ALERT AND ORIENTED DURING SHIFT. VITALS STABLE. JONES PATENT, URINE CLOUDY YELLOW. IV IN L FA PATENT, SL. UP WITH STAND BY. HAD A LARGE BM TODAY. DENIED PAIN. IN ROOM MAJORITY OF SHIFT. TOLERATED DIET. EKG STRIPS CHARTED. CALL LIGHT WITHIN REACH. FALL PRECAUTIONS IN PLACE. WILL CONTINUE TO MONITOR.
[2018-04-27 20:00] VITALS: BP 124/53
--- NOTE | 2018-04-27 20:00 | NUR ---
RECEIVED REPORT AND ASSUMED CARE OF PT, ASSESSMENT COMPLETED. O2 SAT 86% ON RA. DISCUSSED NEED FOR O2 AT HS. O2 AT 2L/NC FOR O2 SAT OF 98%. HOB ELEVATED. TELEMETRY ON SHOWING SR. WILL CONT TO MONITOR AND ASSIST NEEDED.
[2018-04-27 23:00] VITALS: BP 155/66
[2018-04-28 03:13] VITALS: BP 119/61
[2018-04-28 04:53] LABS: HEMATOCRIT 23.4 % (42.0-52.0); HEMOGLOBIN 7.7 gm/dL (14.0-18.0); MCH 32.9 pg (26.0-34.0); MCHC 32.9 g/dL (28.0-37.0); MPV 8.9 fl. (7.2-11.1); RBC 2.34 mil/uL (4.50-6.00); RDW-CV 17.4 % (10.5-14.5); WBC 3.1 thou/uL (4.0-11.0)
[2018-04-28 05:13] LABS: ALBUMIN 2.1 g/dL (3.4-5.0); CALCIUM 8.4 mg/dL (8.5-10.1); CREATININE 1.4 mg/dL (0.6-1.3); MAGNESIUM 1.6 mg/dL (1.8-2.4); POTASSIUM 4.3 mmol/L (3.5-5.1); TOTAL BILIRUBIN 0.1 mg/dL (<0.1-1.0); TOTAL PROTEIN 7.5 g/dL (6.4-8.2)
--- NOTE | 2018-04-28 06:34 | NUR ---
SLEPT WELL TONIGHT. NO CHANGE IN ASSESSMENT. TAKING FLUIDS WITHOUT COUGHING OR CHOKING. TELEMETRY CONT TO SHOW SR/SB. HS GOALS OF REST AND SAFETY ACHIEVED. HOURLY ROUNDING OBSERVED.
[2018-04-28 08:00] VITALS: BP 109/52
--- NOTE | 2018-04-28 08:00 | NUR ---
ASSUMED PT CARE AT 0700, PT LYING IN BED, CALL LIGHT IN REACH. VSS, TRIM SETTER TRACING SINUS RHYTHM. PT TO HAVE PULMONOLOGY CONSULT TO BE CLEARED FOR EGD TOMORROW, PT TO BE NPO AFTER MIDNIGHT. DENIES ANY PAIN OR SOA, SLIGHT TREMORS IN RIGHT LOWER EXTREMITY D/T PARKINSONS. WILL CONT POC.
[2018-04-28 12:00] VITALS: BP 119/56
[2018-04-28 16:29] VITALS: BP 123/70
--- NOTE | 2018-04-28 19:56 | NUR ---
PT RESTING IN BED, CALL LIGHT IN REACH. VSS, DRIER TRACING SINUS RHYTHM. PT ON 4LPM O2 VIA NC, USING BIPAP WHEN NAPPING THROUGH OUT DAY. INCONT B&B. PTS GOAL FOR DAY IS TO CONT MEDS, BTX, AND REST. PT STATES HE IS FEELING MUCH BETTER. HOURLY ROUNDING COMPLETED.
[2018-04-28 20:00] VITALS: BP 128/43
--- NOTE | 2018-04-28 20:04 | NUR ---
PT RESTING IN BED, CALL LIGHT IN REACH, REGISTERED CLINICAL DIETITIAN TRACING SINUS RHYTHM, VSS, REMAINS ON 2LPM O2. HOURLY ROUNDING COMPLETED.CATHETER PATENT AND DRAINING YELLOW URINE. PT IS UP WITH WALKER AND ASSIST X1. PT DENIES ANY PAIN OR SOA, SLIGHT TREMORS TO RIGHT LOWER EXTREMITY REMAIN.
[2018-04-29] VITALS: BP 154/58
[2018-04-29 04:00] VITALS: BP 158/53
--- NOTE | 2018-04-29 06:12 | NUR ---
ASSUMED PT CARE AT APPROX 1930. PT IS AWAKE AND ORIENTED X4. VSS ON 3L/NC. TRACING SB ON TELE. DENIES ANY PAIN AND DISCOMFORT. SUPRAPUBIC CATHETER INTACT. RE-ASSESSMENT DONE AND CHARTED. FOR EGD IN AM, CONSENT SIGNED. ADVISED TO HAVE NOTHING BY MOUTH POST MIDNIGHT. REPOSITIONED EVERY 2HRS. CALL LIGHT WITHIN REACH. HOURLY ROUNDING DONE FOR PT SAFETY.
[2018-04-29 08:00] VITALS: BP 161/60
--- NOTE | 2018-04-29 08:00 | NUR ---
ASSUMED PT CARE AT 0700, PT LYING IN BED, FALL PRECAUTIONS IN PLACE. A&O X4, UP WITH ASSIST X1 AND WALKER. INFORMATION ASSURANCE MANAGER TRACING SINUS DYLAN, VSS, REMAINS ON O2 2LPM. PT TO HAVE EGD ON MONDAY INSTEAD OF MONDAY PER DR ANDUJAR, PT OK TO HAVE REGULAR DIET AND NPO AFTER MIDNIGHT FOR EGD MONDAY. SP CATH DRAINING LIGHT YELLOW URINE WITH MINIMAL SEDIMENT, PT DENIES ANY PAIN/SOA.
[2018-04-29 12:35] VITALS: BP 133/59
[2018-04-29 13:41] LABS: ABSOLUTE EOSINOPHILS 0.1 thou/uL (0.0-0.7); ABSOLUTE LYMPHOCYTES 0.7 thou/uL (0.8-5.3); ABSOLUTE MONOCYTES 0.3 thou/uL (0.0-1.2); ABSOLUTE NEUTROPHILS 2.8 thou/uL (1.6-8.1); BASOPHILS 1.3 %; EOSINOPHILS 2.5 %; HEMATOCRIT 24.1 % (42.0-52.0); HEMOGLOBIN 7.8 gm/dL (14.0-18.0); LYMPHOCYTES 18.4 %; MCHC 32.6 g/dL (28.0-37.0); MONOCYTES 6.4 %; MPV 9.4 fl. (7.2-11.1); NUCLEATED RBCS 0 /100WBC; PLATELET COUNT* 204 thou/uL (150-400); POLYS 71.4 %; RBC 2.38 mil/uL (4.50-6.00); RDW-CV 17.9 % (10.5-14.5); WBC 3.9 thou/uL (4.0-11.0)
[2018-04-29 13:49] LABS: ALBUMIN 2.2 g/dL (3.4-5.0); CALCIUM 8.3 mg/dL (8.5-10.1); CREATININE 1.4 mg/dL (0.6-1.3); POTASSIUM 4.3 mmol/L (3.5-5.1); TOTAL BILIRUBIN 0.2 mg/dL (<0.1-1.0); TOTAL PROTEIN 7.3 g/dL (6.4-8.2)
[2018-04-29 16:28] VITALS: BP 113/59
--- NOTE | 2018-04-29 19:00 | NUR ---
PT UP IN CHAIR FOR ALL MEALS, REMAINS ON O2 2LPM VIA NC, VSS. HOURLY ROUNDING COMPLETED, GOALS OF SAFETY AND REST COMPLETED. NPO AFTER MIDNIGHT FOR EGD IN AM. AT BEDSIDE, EDUCATION GIVEN ON DEMAND.
[2018-04-29 20:00] VITALS: BP 130/62
[2018-04-30] VITALS: BP 151/65
[2018-04-30 04:00] VITALS: BP 144/56
[2018-04-30 04:39] LABS: ABSOLUTE EOSINOPHILS 0.1 thou/uL (0.0-0.7); ABSOLUTE LYMPHOCYTES 0.7 thou/uL (0.8-5.3); ABSOLUTE MONOCYTES 0.3 thou/uL (0.0-1.2); ABSOLUTE NEUTROPHILS 2.5 thou/uL (1.6-8.1); BASOPHILS 0.3 %; EOSINOPHILS 2.5 %; HEMATOCRIT 23.6 % (42.0-52.0); HEMOGLOBIN 7.8 gm/dL (14.0-18.0); LYMPHOCYTES 20.8 %; MCH 32.7 pg (26.0-34.0); MCV 99.1 fL (80.0-100.0); MONOCYTES 7.1 %; NUCLEATED RBCS 0 /100WBC; PLATELET COUNT* 212 thou/uL (150-400); POLYS 69.3 %; RBC 2.38 mil/uL (4.50-6.00); WBC 3.6 thou/uL (4.0-11.0)
[2018-04-30 04:51] LABS: PROTIME 10.3 Seconds (9.20-11.50)
[2018-04-30 05:02] LABS: ALBUMIN 2.2 g/dL (3.4-5.0); CALCIUM 7.7 mg/dL (8.5-10.1); CREATININE 1.4 mg/dL (0.6-1.3); POTASSIUM 4.2 mmol/L (3.5-5.1); TOTAL BILIRUBIN 0.3 mg/dL (<0.1-1.0); TOTAL PROTEIN 7.3 g/dL (6.4-8.2)
--- NOTE | 2018-04-30 05:51 | NUR ---
ASSUMED PT CARE AT APPROX 1930. PT IS AWAKE AND ORIENTED X4. VSS ON 1-2L OF O2/NC. SR/SB ON TELE. DENIES ANY PAIN NOR DISCOMFORT. FOR EGD IN AM, WITH CONSENT SIGNED. ADVISED TO HAVE NOTHING BY MOUTH POST MIDNIGHT. PT SHOWED UNDERSTANDING. POSITION CHANGES DONE Q2HRS. CALL LIGHT WITHIN REACH. HOURLY ROUNDING DONE FOR PT SAFETY.
[2018-04-30 08:00] VITALS: BP 156/77
--- NOTE | 2018-04-30 08:00 | NUR ---
ASSUMED PT CARE AT 0700, PT IN BED, FALL PRECAUTIONS IN PLACE, AT BEDSIDE. FOOD SALES CLERK TRACING SINUS DYLAN, VSS, REMAINS ON O2 1LPM, WILL CONT TO TITRATE DOWN TO RA IF PT TABLE TO TOLERATE. NPO FOR EGD THIS AM, AM MEDS HELD UNTIL POST PROCEDURE. WILL CONT POC.
[2018-04-30 15:45] VITALS: BP 104/51
--- NOTE | 2018-04-30 19:28 | NUR ---
PT SITTING UP IN BED, REMAINS ON 4LPM VIA NC, VSS, MANAGER OF CREATIVE SERVICES TRACING AFIB, HOURLY ROUNDING COMPLETED. ECHO COMPLETED AND RESULTS DISCUSSED WITH PT. GOALS MET THIS SHIFT, PT TO CONT ON OT/OT FOR STRENGTH AND SAFETY.
--- NOTE | 2018-04-30 19:33 | NUR ---
PT COMPLETED EGD THIS SHIFT, FINDINGS SHOW HEALED ESOPHAGITIS. VSS, INSURANCE CHECKER TRACING SR/SB, HOURLY ROUNDING COMPLETED. NEW ORDER FOR SP CATHETER TO BE REMOVED, PTS REFUSED FOR SP CATH TO BE REMOVED. PT STATED HE WOULD LIKE FOR CATH TO BE CHANGED AT BED TIME. CONT ON PT/OT FOR SAFETY AND STRENGTH.
[2018-04-30 20:00] VITALS: BP 138/70
[2018-05-01] VITALS: BP 142/50
[2018-05-01 04:00] VITALS: BP 137/53
--- NOTE | 2018-05-01 04:01 | NUR ---
ASSUMED PT CARE AT APPROX 1930. PT IS AWAKE AND ORIENTED X4. VSS ON ROOM AIR. NO DESATURATIONS NOTED. RE-ASSESSMENT DONE AND CHARTED. PT DENIES PAIN/DISCOMFORT. SUPRAPUBIC CATHETER CHANGE DONE ASEPTICALLY. PT TOLERATED PROCEDURE WELL. PT TURNED TO SIDES Q2HRS. CALL LIGHT WITHIN REACH. HOURLY ROUNDING DONE FOR PT SAFETY.
--- NOTE | 2018-05-01 08:00 | NUR ---
PT SITTING UP IN CHAIR, A&O X4, UP WITH ASSIST X1 AND WALKER. GOALS TO MAINTAIN SAFETY AND CONT MEDICATION, PT TO DC THIS SHIFT. VSS, COLLECTION SYSTEMS TECHNICIAN TRACING SINUS RHYTHM WITH RUNS OF SINUS DYLAN, VSS, REMAINS ON RA. WILL CONT TO MONITOR THROUGH OUT SHIFT.
[2018-05-01] MEDS ORDERED: IPRAT-ALBUT 0.5-3 ML INH (12:24)
[2018-05-01] MEDS ORDERED: CEFUROXIME500 MG PO (12:24)
[2018-05-01] MEDS ORDERED: NEBULIZER MISCELL (12:24)
[2018-05-01 12:27] VITALS: BP 131/61
[2018-05-01] MEDS ORDERED: FERREX 150 PLU1 EAC1 PO (12:27)
[2018-05-01] MEDS ORDERED: ADULT LOW DOSE81 MG PO (12:27)
[2018-05-01 13:18] VITALS: BP 131/61
[2018-05-01 13:50] VITALS: BP 131/61
--- NOTE | 2018-05-01 14:11 | NUR ---
[employer] EMISSIONS AUTOMOTIVE TECHNICIAN INFORMED THAT PATIENT WOULD D/C TODAY AND REQUEST TO CONTINUE HH WITH [facility]. D/C SEISMOGRAPH SHOOTER SPOKE TO INTAKE WITH [facility] TO INFORM OF THE PATIENT'S D/C, AND FAXED THE PATIENT'S D/C ORDERS. [facility] TO CONTACT THE PATIENT AND SPOUSE TO ARRANGE VISIT. CM WILL REMAIN AVIALABLE TO ASSIST AND FOLLOW NEEDED.
[2018-05-01 17:10] VITALS: BP 130/61
--- NOTE | 2018-05-01 19:50 | NUR ---
PT DISCHARGED HOME VIA WHEELCHAIR WITH SPOUSE AND NURSING STAFF. EDUCATED ON ALL DISCHARGE INSTRUCTIONS INCLUDING MEDICATIONS AND FOLLOW UPS, HOME MEDICATIONS RETURNED TO PT. IV AND DOCTOR OF AUDIOLOGY REMOVED.
== END 2018-05-01 19:00 | disposition home health service (06) | DRG 871 ==
LOC: M.ERS 14:20 → M.2W 15:36 → M.TBA-ER 15:36 → M.2W 17:17
PROVIDERS: Internal Medicine; Internal Medicine Gastroenterology; Nurse Practitioner Family; ADMIT Family Medicine
PROC: 30233N1 Transfusion of Nonautologous Red Blood Cells into Peripheral Vein, Percutaneous Approach (ICD-10-PCS; principal; 2018-04-25)
PROC: 0DJ08ZZ Inspection of Upper Intestinal Tract, Via Natural or Artificial Opening Endoscopic (ICD-10-PCS; 2018-04-30)
DX: A41.9 Sepsis, unspecified organism (principal); J69.0 Pneumonitis due to inhalation of food and vomit; E43 Unspecified severe protein-calorie malnutrition; J98.11 Atelectasis; E86.0 Dehydration; G20 Parkinson's disease; M81.0 Age-related osteoporosis without current pathological fracture; F41.9 Anxiety disorder, unspecified; E87.5 Hyperkalemia; D72.819 Decreased white blood cell count, unspecified; D63.8 Anemia in other chronic diseases classified elsewhere; N18.3 Chronic kidney disease, stage 3 (moderate); G89.29 Other chronic pain; K44.9 Diaphragmatic hernia without obstruction or gangrene; K21.0 Gastro-esophageal reflux disease with esophagitis; M54.9 Dorsalgia, unspecified; K59.00 Constipation, unspecified; G47.30 Sleep apnea, unspecified; F32.9 Major depressive disorder, single episode, unspecified; Z85.79 Personal history of other malignant neoplasms of lymphoid, hematopoietic and related tissues; Z85.51 Personal history of malignant neoplasm of bladder; Z89.022 Acquired absence of left finger(s); Z86.718 Personal history of other venous thrombosis and embolism; Z86.711 Personal history of pulmonary embolism; Z87.891 Personal history of nicotine dependence; Z92.21 Personal history of antineoplastic chemotherapy; Z92.3 Personal history of irradiation; Z87.81 Personal history of (healed) traumatic fracture; Z79.01 Long term (current) use of anticoagulants; Z79.899 Other long term (current) drug therapy; Z88.0 Allergy status to penicillin; Z91.040 Latex allergy status; Z82.49 Family history of ischemic heart disease and other diseases of the circulatory system; Z68.24 Body mass index [BMI] 24.0-24.9, adult

== ENCOUNTER → 2018-10-17 | Outpatient (CLI) | payer MEDICARE, OTHER ==
[~2018-10-17] MED LIST changes: +ADULT LOW DOSE81 MG PO; +CEFUROXIME500 MG PO; +FERREX 150 PLU1 EAC1 PO; +IPRAT-ALBUT 0.5-3 ML INH; +LIDOCAINE1 EACH TRANSDERM; +NEBULIZER MISCELL
== END ==
LOC: M.RAD 12:47
DX: S22.42XD Multiple fractures of ribs, left side, subsequent encounter for fracture with routine healing (principal); G20 Parkinson's disease; M81.0 Age-related osteoporosis without current pathological fracture; C90.00 Multiple myeloma not having achieved remission; X58.XXXD Exposure to other specified factors, subsequent encounter